=== PATIENT | female | born 1970 | race Caucasian/White ===

== ENCOUNTER 2020-02-02 11:59 | Outpatient (CLI) | payer OTHER, BC, SELFPAY ==
--- NOTE | ~2020-02-02 | XR_ITS ---
XR chest 2V DATE: 02/02/2020 12:18 INDICATION: Cough, shortness of breath. Positive Covid 19 test TECHNIQUE: PA and lateral views COMPARISON: 06/20/2016 PA and lateral chest FINDINGS: Normal heart size. No hilar or mediastinal enlargement. The lungs are clear of infiltrate o r consolidation. No pleural effusion or pulmonary vascular congestion or pneumothorax. IMPRESSION: Negative Reviewed, dictated and finalized at location B. IMPRESSION: Negative
== END 2020-02-02 12:00 | disposition home or self-care (01) ==
PROVIDERS: PCP Family Medicine; Visit Provider Family Medicine
DX: R06.00 Dyspnea, unspecified (principal)
CPT/HCPCS: 71046

== ENCOUNTER → 2021-05-09 14:22 | Outpatient (CLI) | payer BC, SELFPAY ==
--- NOTE | ~2021-05-09 | XR_ITS ---
EXAMINATION: XR wrist LT min 3V DATE: 05/09/2021 14:43 INDICATION: Left wrist pain. TECHNIQUE: 4 views of left wrist were obtained. COMPARISON: None. FINDINGS: Bone alignment is normal. No fracture. There is mild osteoarthritis of triscaphe joint and first carpometacarpal joint. IMPRESSION: 1. Mild polyarticular osteoarthritis. Reviewed, dictated and finalized at location A. [employer]
--- NOTE | ~2021-05-09 | XR_ITS ---
EXAMINATION: XR cervical spine 4-5V EXAM DATE: 05/09/2021 14:43 INDICATION: Cervicalgia. TECHNIQUE: Cervical spine frontal, lateral, lateral swimmers, and open-mouth odontoid projections. There is no prior study for comparison. FINDINGS: Straightening of normal cervical lordosis could be positional or spasm. There is no eviden ce of acute cervical fracture. The odontoid process is intact. Pre-dens space is normal. Preverteb ral soft tissue is normal. There are no soft tissue abnormalities identified. No more than mild cerv ical arthropathy. Lung apices clear. Vertebral body and disc heights are well-maintained. The vert ebral bodies are aligned. IMPRESSION: 1. Cervical straightening. 2. Mild cervical arthropathy. Reviewed, dictated and finalized at location A. B[employer]NER REPA[employer]
== END ==
PROVIDERS: PCP Family Medicine; Visit Provider Physician Assistant
DX: M54.2 Cervicalgia (principal); M19.032 Primary osteoarthritis, left wrist
CPT/HCPCS: 72050; 73110

== ENCOUNTER → 2021-05-30 10:57 | Outpatient (CLI) | payer BC, SELFPAY ==
--- NOTE | ~2021-05-30 | MM_ITS ---
EXAMINATION: MM screening [facility] BI w radhika HISTORY: Screening mammogram TECHNIQUE: Craniocaudal and mediolateral oblique 3-D tomosynthesis images were obtained and synthetic 2-D images were generated. CAD analysis was submitted and interpreted. COMPARISON: 04/16/2019, 07/12/2016, 06/29/2011 BREAST PARENCHYMAL COMPOSITION: There are scattered areas of fibroglandular density. FINDINGS: There is no evidence of suspicious mass, calcification, or architectural distortion to sugg est malignancy in either breast. There has been no suspicious interval change. IMPRESSION: 1. No mammographic evidence of malignancy. 2. Recommend routine screening mammography in one year. BI-RADS Category 1: Negative Reviewed, dictated and finalized at location A. ER MANUFA[employer]UR[employer]
== END ==
PROVIDERS: PCP Family Medicine; Visit Provider Physician Assistant
DX: Z12.31 Encounter for screening mammogram for malignant neoplasm of breast (principal)
CPT/HCPCS: 77063; 77067

== ENCOUNTER 2021-07-04 00:13 | Day surgery (SDC) | payer BC, SELFPAY ==
[2021-06-22 11:28] VITALS: BMI 29.2
[2021-07-04 09:57] VITALS: BP 131/83; PULSE 90; RESP 16; TEMP 36.9; O2SAT 100; BMI 29.0
[2021-07-04] MEDS: LACTATED RINGERS 1,000 ML 150 ML IV CONT (10:09)
--- NOTE | 2021-07-04 10:24 | WPDGICN ---
Assessment and Plan Assessment and plan (1) Encounter for screening colonoscopy: Code(s): Z12.11 - Encounter for screening for malignant neoplasm of colon Status: Acute Assessment and Plan: Patient presents for screening colonoscopy. Appears to be at average risk for colon polyps. GI Consult Note Consult date/time: 07/04/21 10:24 HPI: Rosalinda Hall is a 51 year old female Presents for screening colonoscopy. Patient's current weight appetite and bowel movements are normal. She denies abdominal pain. She has had no bleeding. Family history is noncontributory. Review of Systems Review of Systems: All systems reviewed & are unremarkable except as noted in HPI and below PMFSH Past Medical History Medical History (Updated 07/04/21 @ 10:25 by Pj Vallecillo MD) delivery delivered Metal bone fixation hardware in place Neuropathy Surgical History Surgical History (Reviewed 05/09/21 @ 13:59 by Francy Rogers [facility]) History of back surgery History of foot surgery History of tonsillectomy History of total knee arthroplasty History of tubal ligation [place] teeth extracted Family History Family History (Reviewed 05/09/21 @ 13:59 by Francy Rogers [facility]) Mother Diabetes mellitus Hypertension Father Hypertension Grandparent Family history of malignant neoplasm of breast in first degree relative Social History Social History (Reviewed 05/09/21 @ 13:59 by Francy Rogers [facility]) Smoking packs per day: 1 Smoking cigarettes per day: 20.0 Smoking status: Former smoker Tobacco type: cigarettes Second hand tobacco smoke exposure: No Smoking end date: 05/07/96 Alcohol intake: current Alcohol use details: Occasional Substance use: never Substance use type: does not use Living arrangements: alone Gender identity (if verbalized by the patient): Female Sexual Orientation (if Verbalized by the Patient): Straight or Heterosexual Spiritual care concerns: No Agree to blood products: Yes Meds Home Medications and Allergies Home Medications Medication Instructions Recorded Confirmed Type ergocalciferol (vitamin D2) 50 mcg 50 mcg PO DAILY 11/03/20 07/04/21 History (2,000 unit) capsule uplgmeqrrkfy-No-dnpt-minerals 1 tablet PO DAILY 11/03/20 07/04/21 History zolpidem 10 mg tablet 10 mg PO .q hs PRN #30 tablet 05/31/21 07/04/21 Rx tramadol 50 mg tablet 50 mg PO BID PRN #60 tablet 06/28/21 07/04/21 Rx Allergies Allergy/AdvReac Type Severity Reaction Status Date / Time morphine Allergy Mild Hives / Verified 07/04/21 09:56 Red Face codeine AdvReac Unknown Vomiting Verified 07/04/21 09:56 Vital Signs Vital Signs - 24 hr 07/04/21 09:57 Temperature 98.5 F Pulse Rate 90 Respiratory Rate 16 Blood Pressure 131/83 Pulse Oximetry 100 Exam Narrative: Physical exam reveals patient to be alert. Vital signs stable. HEENT exam is unremarkable. Patient is anicteric. Lungs are clear to auscultation and percussion. Heart is without murmur or extra sounds. Abdominal exam exam bowel sounds are present soft nontender with no hepatosplenomegaly. Digital external rectal exam is normal.
--- NOTE | 2021-07-04 10:51 | WPDANESEPPF ---
Anes - Initial Pre Proc Eval Procedure: Operation Date: 07/04/21 11:15 Proposed Procedures p Screening Colonoscopy - Pj Vallecillo MD Date/Time: 07/04/21 10:51 Surgeon: Pj Vallecillo MD Pre Op Diagnosis: neoplasm screening Patient Data Age: 51 Gender: F Height: 1.65 m Weight: 79.1 kg Last Vital Signs Temp 98.5 F 07/04/21 09:57 Pulse 90 07/04/21 09:57 Resp 16 07/04/21 09:57 BP 131/83 07/04/21 09:57 Pulse Ox 100 07/04/21 09:57 Allergies Allergy/AdvReac Type Severity Reaction Status Date / Time morphine Allergy Mild Hives / Verified 07/04/21 09:56 Red Face codeine AdvReac Unknown Vomiting Verified 07/04/21 09:56 Home Medications Medication Instructions Recorded Confirmed Type ergocalciferol (vitamin D2) 50 mcg 50 mcg PO DAILY 11/03/20 07/04/21 History (2,000 unit) capsule atsnympclbwo-Vh-jkcr-minerals 1 tablet PO DAILY 11/03/20 07/04/21 History zolpidem 10 mg tablet 10 mg PO .q hs PRN #30 tablet 05/31/21 07/04/21 Rx tramadol 50 mg tablet 50 mg PO BID PRN #60 tablet 06/28/21 07/04/21 Rx Patient hx anesthesia problems: none Family hx anesthesia problems: none Results Review: All pre-operative results and documents have been reviewed as part of the pre-operative evaluation. [facility] Past Medical History Medical History (Updated 07/04/21 @ 10:25 by Pj Vallecillo MD) delivery delivered Metal bone fixation hardware in place Neuropathy Surgical History Surgical History History of back surgery History of foot surgery History of tonsillectomy History of total knee arthroplasty History of tubal ligation [place] teeth extracted Family History Family History Mother Diabetes mellitus Hypertension Father Hypertension Grandparent Family history of malignant neoplasm of breast in first degree relative Social History Social History Smoking packs per day: 1 Smoking cigarettes per day: 20.0 Smoking status: Former smoker Tobacco type: cigarettes Second hand tobacco smoke exposure: No Smoking end date: 05/07/96 Alcohol intake: current Alcohol use details: Occasional Substance use: never Substance use type: does not use Living arrangements: alone Gender identity (if verbalized by the patient): Female Sexual Orientation (if Verbalized by the Patient): Straight or Heterosexual Spiritual care concerns: No Agree to blood products: Yes Anes - Eval Final PreProcedure Day of Procedure 07/04/21 10:51 Patient weight: overweight Heart: regular rate and rhythm Lungs: clear to auscultation Airway: Mallampati scale class II Neurological: alert and oriented Last oral intake: >/= 8 hours ASA classification: II Emergent: no Anesthetic plan: proceed Anesthesia type and monitoring: general GIVS and standard monitoring Results Review: All pre-operative results and documents have been reviewed as part of the pre-operative evaluation. Informed Consent: The patient's anesthetic plan and its attendant risks and benefits were discussed with the patient/family/POA. Questions were solicited and answers provided to the satisfaction of the patient/family/POA.
[2021-07-04 11:12] VITALS: BP 136/75; PULSE 88; RESP 26; O2SAT 97
[2021-07-04 11:22] VITALS: BP 142/78; PULSE 80; RESP 25; O2SAT 100
[2021-07-04 11:32] VITALS: BP 143/84; PULSE 65; RESP 18; O2SAT 100
== END 2021-07-04 11:40 | disposition home or self-care (01) ==
PROVIDERS: PCP Family Medicine; Visit Provider Internal Medicine Gastroenterology
PROC: 0DJD8ZZ Inspection of Lower Intestinal Tract, Via Natural or Artificial Opening Endoscopic (ICD-10-PCS; CPT 45378; principal; 2021-07-04 11:15)
DX: Z12.11 Encounter for screening for malignant neoplasm of colon (principal); K64.8 Other hemorrhoids; G62.9 Polyneuropathy, unspecified; Z87.891 Personal history of nicotine dependence
CPT/HCPCS: 45378; J2704; J7120

== ENCOUNTER → 2021-08-29 12:50 | Outpatient (CLI) | payer BC, SELFPAY ==
--- NOTE | ~2021-08-29 | XR_ITS ---
XR ankle LT min 3V DATE: 08/29/2021 13:02 INDICATION: Left ankle injury TECHNIQUE: 4 views COMPARISON: None FINDINGS: No fracture or dislocation of the ankle or disruption of the ankle mortise. No periosteal r eaction or bone destruction. Prominent plantar and mild posterior calcaneal enthesopathy. Fixation device of first metatarsal bone. IMPRESSION: No fracture or dislocation of ankle Calcaneal enthesopathy Reviewed, dictated and finalized at location A.
== END ==
PROVIDERS: PCP Family Medicine; Visit Provider Physician Assistant
DX: S99.922A Unspecified injury of left foot, initial encounter (principal); X58.XXXA Exposure to other specified factors, initial encounter; M77.32 Calcaneal spur, left foot
CPT/HCPCS: 73610

== ENCOUNTER → 2021-09-19 14:57 | Outpatient (CLI) | payer BC, SELFPAY ==
--- NOTE | ~2021-09-19 | XR_ITS ---
EXAM: XR thoracic spine 3V HISTORY: M54.9 - Dorsalgia, unspecified . COMPARISON: None available. FINDINGS: Pedicles intact. Normal vertebral body alignment. Vertebral body heights preserved. Multilevel mild m arginal osteophytosis. Visualized lung parenchyma is clear. IMPRESSION: Mild multilevel degenerative disc disease in the thoracic spine. Reviewed, dictated and finalized at location K.
--- NOTE | ~2021-09-19 | XR_ITS ---
EXAM: XR cervical spine 4-5V HISTORY: M54.9 - Dorsalgia, unspecified . COMPARISON: None available. FINDINGS: Craniocervical association and atlantoaxial joint are normal. No prevertebral soft tissue swelling. The vertebral body heights are maintained. Mild disc space narrowing at C5-6. 2 mm retrolis thesis of C5 on C6, otherwise normal vertebral body alignment. Normal facets and posterior elements. No significant neural foraminal narrowing. IMPRESSION: Mild degenerative disc disease at C5-6. Minimal retrolisthesis of C5 on C6. Otherwise nor mal cervical spinal radiograph findings. Reviewed, dictated and finalized at location K. IMPRESSION: Mild degenerative disc disease at C5-6. Minimal retrolisthesis of C 5 on C6. Otherwise normal cervical spinal radiograph findings.
== END ==
PROVIDERS: PCP Family Medicine; Visit Provider Physician Assistant
DX: M47.813 Spondylosis without myelopathy or radiculopathy, cervicothoracic region (principal)
CPT/HCPCS: 72050; 72072

== ENCOUNTER 2022-05-24 14:11 | Outpatient (CLI) | payer BC, SELFPAY ==
--- NOTE | ~2022-05-24 | XR_ITS ---
EXAMINATION: XR shoulder LT min 2V DATE: 05/24/2022 14:37 INDICATION: Left shoulder pain TECHNIQUE: AP internally and externally rotated, AP oblique externally rotated and axillary views of the left shoulder were obtained. COMPARISON: None FINDINGS: Normal alignment. No fracture. Glenohumeral joint is normal. Acromioclavicular joint is normal. Soft tissues are unremarkable. Visualized portions of the lungs are clear. IMPRESSION: Negative left shoulder radiographs. Reviewed, dictated and finalized at location A. TUTOR
== END 2022-05-24 14:12 ==
PROVIDERS: PCP Physician Assistant; Visit Provider Physician Assistant
DX: M25.512 Pain in left shoulder (principal)
CPT/HCPCS: 73030

== ENCOUNTER → 2022-06-30 14:08 | Outpatient (CLI) | payer BC, SELFPAY ==
--- NOTE | ~2022-06-30 | MR_ITS ---
EXAMINATION: MR shoulder LT wo con DATE: 06/30/2022 14:52 INDICATION: Left shoulder pain TECHNIQUE: Magnetic resonance imaging (MRI) of the left shoulder was performed without intravenous co ntrast. Sequences included axial PD-weighted FS FSE, coronal oblique PD-weighted FS FSE, coronal obli que T2-weighted FS FSE, sagittal PD-weighted FS FSE, and sagittal T1-weighted SE. COMPARISON: Left shoulder radiographs dated 05/24/2022 FINDINGS: Coracoacromial arch: The acromion undersurface is curved in morphology (type II). The coracoacromial ligament is normal. M ild acromioclavicular osteoarthritis. Rotator cuff: Moderate supraspinatus tendinopathy and moderate anterior and mild posterior infraspinatus tendinopat hy without discrete tear. The teres minor tendon is normal. The subscapularis tendinopathy with giddi ness masses or fluid. No more small split tear between the bursal side of the tendon which is contigu ous with the transverse humeral ligament and the portion of the tendon attached to the lesser tuberos ity. This allows medial subluxation of the long head biceps tendon across the cephalad medial rim of the intertubercular groove and into the subscapularis split tear. Normal rotator cuff muscle bulk and signal. Biceps tendon, glenoid labrum and glenohumeral cartilage: Moderate tendinopathy without discrete tear centered at the junction of the intra-articular and extra -articular portions of the long head biceps tendon. There is a tear of the 11:00-9:30 position of the posterior superior glenoid labrum. Glenohumeral cartilage is normal. Fluid: Physiologic amount of fluid in the glenohumeral joint. There is disproportionate increased fluid in t he long head biceps tendon sheath consistent with mild bicipital tenosynovitis.. No loose osteochond ral bodies. Minimal increased fluid signal in the subacromial/subdeltoid bursa consistent with mild b ursitis. Bones: Normal marrow signal with no edema, fracture or abnormal marrow replacing process. IMPRESSION: 1. Moderate supraspinatus and infraspinatus tendinopathy without tear. 2. Mild subscapularis tendinopathy with small split tear between the portion of the tendon attached t o the lesser tuberosity and the superficial portion of the tendon attached to the transverse humeral ligament. This lowers medial subluxation of the long head biceps tendon across the medial rim of the intertubercular groove and into the split tear defect. 3. Mild bicipital tenosynovitis with moderate tendinopathy without tear of the subluxed portion of th e long head biceps tendon. 4. Tear of the posterior superior glenoid labrum. 5. Mild acromioclavicular osteoarthritis with mild underlying subacromial/subdeltoid bursitis. Reviewed, dictated and finalized at location A. 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 Moderate supraspinatus and infraspinatus tendinopathy without tear. 2. Mild subscapularis tendinopathy with small split tear between the portion of the tendon attached to the lesser tuberosity and the superficial portion of th e tendon attached to the transverse humeral ligament. This lowers medial sublux ation of the long head biceps tendon across the medial rim of the intertubercul ar groove and into the split tear defect. 3. Mild bicipital tenosynovitis with moderate tendinopathy without tear of the subluxed portion of the long head biceps tendon. 4. Tear of the posterior superior glenoid labrum. 5. Mild acromioclavicular osteoarthritis with mild underlying subacromial/subde ltoid bursitis.
== END ==
PROVIDERS: PCP Physician Assistant; Visit Provider Orthopaedic Surgery
DX: M19.012 Primary osteoarthritis, left shoulder (principal); M75.22 Bicipital tendinitis, left shoulder
CPT/HCPCS: 73221

== ENCOUNTER 2022-08-14 09:21 | Outpatient (CLI) | payer BC, SELFPAY ==
--- NOTE | ~2022-08-14 | MMUS_ITS ---
EXAMINATION: MM diagnostic [facility] BI w radhika, US breast LT limited HISTORY: Patient complains of some thickening and tenderness at L3-4 o'clock, left breast TECHNIQUE: Bilateral full field and spot left 3-D tomosynthesis images were performed and synthetic 2 -D images were generated. CAD analysis was submitted and interpreted. High resolution upper outer carson drant and lower outer quadrant left breast ultrasound was performed. COMPARISON: 05/30/2021, 04/16/2019 bilateral screening mammogram examinations BREAST PARENCHYMAL COMPOSITION: There are scattered areas of fibroglandular density. FINDINGS: MAMMOGRAPHIC FINDINGS: Benign low-density circumscribed contiguous 2 x 2.8 mm and 3 x 6.7 mm opacities are noted in the mid to upper outer left breast superficially, possibly benign lymph nodes. These are present on 9 mammogram is well. No suspicious mass or architectural distortion, malignant calcification, skin thickening or retractio n or significant new or developing density of either breast is detected. ULTRASOUND: 3:00 5 cm from nipple: Circumscribed 2.8 x 3.6 x 3 mm hypoechoic lesion without internal vascularity or posterior shadowing, likely benign. No suspicious mass or shadowing is detected in the upper outer or lower outer quadrants of the left b reast. IMPRESSION: 1. Benign findings 2. Routine annual mammographic screening is recommended BI-RADS Category 2: Benign finding(s). Reviewed, dictated and finalized at location A. IMPRESSION: 1. Benign findings 2. Routine annual mammographic screening is recommended BI-RADS Category 2: Benign finding(s).
== END 2022-08-14 09:22 ==
PROVIDERS: PCP Family Medicine; Visit Provider Family Medicine
DX: N63.23 Unspecified lump in the left breast, lower outer quadrant (principal)
CPT/HCPCS: 76642; 77062; 77066; G0279

== ENCOUNTER 2022-09-19 01:09 | Day surgery (SDC) | payer BC, SELFPAY ==
[2022-09-12 12:25] VITALS: BMI 29.9
--- NOTE | 2022-09-12 12:31 | PC.NURSE ---
Report to the Outpatient Waiting Room, entrance under the green pavilion located off [facility], at time 0830 on date 09/19/22. Planned Procedure Time: 1030. Time changes happen often and if your time is changed the preop area will call you the afternoon before. - You and your visitor will be asked to self-screen and do not enter if you have any COVID symptoms. - A mask is optional within the hospital at this time. Patients may have clear liquids (water, carbonated beverages, clear teas, apple juice) until 3 hours prior to surgery with a maximum of 20 ounces. - No food from midnight until time of surgery Take the following medications with a SIP of water the morning of surgery: TRAMADOL IF NEEDED DO NOT STOP ANY OF YOUR OTHER PRESCRIPTION MEDICATIONS PRIOR TO SURGERY?EXCEPT THE FOLLOWING Medications to discontinue per physician: VITAMINS/SUPPLEMENTS Date to take last dose: 09/15/22 Please no make-up, nail macedonian, hairspray, perfume, deodorant, or body powder the day of surgery. No jewelry (including any body piercings) or valuables the day of surgery, leave them at home. Please take a shower or bath the night before, or the morning of, surgery with an antibacterial soap. Wear comfortable, loose fitting clothing. - Jewelry must be removed prior to entering the operating room. Rings and piercings that are not removed may be cut off. - The hospital will not accept responsibility for valuables. - Please leave all valuables, including medications, at home the day of surgery. If you are going home after surgery, a licensed cdl bulk driver must drive you home. - NO public transportation without another adult if you receive anesthesia. - We recommend that an adult stay with you for 24 hours following discharge. - We also recommend that you do not drive, make important decision, drink alcoholic beverages, or take any drugs that were not prescribed by your health care provider for at least 24 hours after your discharge time. Follow any additional instructions given to you from your surgeon. If you or anyone in your household have experienced Covid symptoms in the past week, please notify your surgeon or the nurse liaison at the phone number below for possible testing. Telephone instructions given to PT - RENITA CANCHOLA and asked if any additional questions and then verbalized understanding. Patient advised to call surgeon office or pre surgery nurse liaison [phone] if any additional questions.
--- NOTE | 2022-09-18 10:35 | WPDANESEPPF ---
Anes - Initial Pre Proc Eval Procedure: Operation Date: 09/19/22 10:30 Proposed Procedures p Left Shoulder Arthroscopic Rotator Cuff Repair, Biceps Tenodesis, Subacromial Decompression - Wally Alvarez MD Date/Time: 09/18/22 10:35 Surgeon: Wally Alvarez MD Pre Op Diagnosis: left rotator cuff tear, biceps tenodesis Patient Data Age: 52 Gender: F Height: 1.65 m Weight: 81.65 kg Allergies Allergy/AdvReac Type Severity Reaction Status Date / Time morphine Allergy Mild Hives / Verified 09/19/22 08:38 Red Face codeine AdvReac Unknown Vomiting Verified 09/19/22 08:38 Home Medications Medication Instructions Recorded Confirmed Type ergocalciferol (vitamin D2) 50 mcg 50 mcg PO DAILY 11/03/20 09/19/22 History (2,000 unit) capsule evwksvgedrqf-Rh-vchp-minerals 1 tablet PO DAILY 11/03/20 09/19/22 History (Multiple Vitamin, Womens tablet) tramadol 50 mg tablet 50 mg PO BID PRN pain #60 tabs 09/04/22 09/19/22 Rx zolpidem 10 mg tablet 10 mg PO .q hs PRN insomnia #30 09/04/22 09/19/22 Rx tabs Patient hx anesthesia problems: post op nausea/vomiting Family hx anesthesia problems: none Results Review: All pre-operative results and documents have been reviewed as part of the pre-operative evaluation. [facility], [facility] Past Medical History Medical History delivery delivered Metal bone fixation hardware in place Neuropathy Surgical History Surgical History History of back surgery History of foot surgery History of tonsillectomy History of total knee arthroplasty History of tubal ligation [place] teeth extracted Family History Family History Mother Diabetes mellitus Hypertension Father Hypertension Grandparent Family history of malignant neoplasm of breast in first degree relative Social History Social History Smoking packs per day: 1 Smoking cigarettes per day: 20.0 Years smoked: 10 Smoking pack-years: 10.00 Smoking status: Former smoker Tobacco type: cigarettes Second hand tobacco smoke exposure: No Smoking end date: 05/07/98 Alcohol intake: current Alcohol use details: 1/MONTH Substance use: current Substance use type: marijuana Other substance usage details: CORNELIA Lack of Transportation: No Lack of Food: Never True Current Housing: I Have Housing Concerned About Future Housing: No Difficulty Paying Gas/Electric Bills: No Difficulty Paying for Meds: No Currently Unemployed: No Education: High School Diploma/GED Difficulty w/ Childcare or Family Care: No Living arrangements: with family Occupation/Education: occupation Gender identity (if verbalized by the patient): Female Sexual Orientation (if Verbalized by the Patient): Straight or Heterosexual Spiritual care concerns: No Agree to blood products: Yes Anes - Eval Final PreProcedure Day of Procedure 09/18/22 10:35 Patient weight: obese Heart: regular rate and rhythm Lungs: clear to auscultation Airway: Mallampati scale class II Neurological: alert and oriented Last oral intake: >/= 8 hours ASA classification: II Emergent: no Anesthetic plan: proceed Anesthesia type and monitoring: general GIVS and standard monitoring Results Review: All pre-operative results and documents have been reviewed as part of the pre-operative evaluation. Informed Consent: The patient's anesthetic plan and its attendant risks and benefits were discussed with the patient/family/POA. Questions were solicited and answers provided to the satisfaction of the patient/family/POA.
[2022-09-19] VITALS (10 sets, daily range): BP systolic 94–131; BP diastolic 51–67; PULSE 52–73; RESP 12–20; TEMP 36.2–36.3; O2SAT 94–100
--- NOTE | 2022-09-19 07:20 | WPDHPUPDATE1 ---
History and Physical Update Update Date/Time: 09/19/22 07:20 History and Physical has been reviewed, including an updated exam of the patient. There are NO changes in the patient's condition. Risks, benefits, and alternatives have been discussed and questions answered. Patient agrees to proceed with procedure.
[2022-09-19] MEDS: ACETAMINOPHEN 500 MG TABLET 1000 MG PO (08:42)
[2022-09-19] MEDS: LACTATED RINGERS 1,000 ML 30 ML IV CONT (09:05)
[2022-09-19] MEDS: KETOROLAC 15 MG/ML VIAL (*BKC) IV PUSH (09:07)
--- NOTE | 2022-09-19 09:26 | WPDANESPNB ---
Anes - Peripheral Nerve Block Date/Time: 09/19/22 09:26 I have discussed with the patient/family/POA the placement of a peripheral nerve block for post-operative pain management, including associated risks, benefits, complications, and side effects. Alternative methods of post-operative analgesia were detailed. Questions were solicited and answers provided to the satisfaction of the patient/family/POA. Time-Out: A pre-procedural Time-Out was completed immediately before starting the procedure and confirmed: Patient Identification, Site, Procedure, Patient Position and the Availability of Requisite Equipment. Clinical Indications: Acute post-operative pain management requested by the operative surgeon. Nerve Block Insertion Note Anes-nerve block: interscalene left Patient position: supine Skin prep: chlorhexidine Needle: 22 gauge, stimulating, insulated echogenic needle. Needle length: 50 mm Technique: ultrasound Injectate: bupivacaine 0.5% with epi 5 mcg/ml (30cc- no epi) Observations: tolerated well Complications: none Procedure start time:: 957 Procedure end time:: 1001
[2022-09-19] MEDS: SCOPOLAMINE 1.5 MG PATCH TRANSDERM (09:32)
[2022-09-19] MEDS: ceFAZolin 2 GM/D5W 50 ML 2 GM/50 ML BAG IVPB (10:12)
[2022-09-19] MEDS: EPINEPHrine HCL INJ 1 MG/ML AMPUL 3 MG IRRIGATION (11:05)
--- NOTE | 2022-09-19 12:23 | P.OP_ITS ---
Procedure Note - Detailed Date of Procedure 09/19/22 Pre-op Diagnosis Left rotator cuff tear, biceps tendinopathy, subacromial impingement. Post-op Diagnosis Same Procedure Performed Left shoulder 1. Arthroscopic rotator cuff repair 2. Arthroscopic subacromial decompression 3. Arthroscopic biceps tenodesis Surgeon Wally Alvarez MD Financial Foundations Associate Inez Navarro PA-C Anesthesia General and Regional ( interscalene block) Findings Mid grade partial-thickness tear of the subscapularis without significant retraction. The biceps in that area was fraying. The anterior supraspinatus showed high-grade partial-thickness tearing greater than 75% thickness. The biceps tenodesis and subscapularis repair were incorporated into a SwiveLock anchor at the articular margin. The supraspinatus tear was carefully assessed and it was felt that completion of the tear would provide the best healing. A small tear was created and repaired with a double row construct and 3 suture passes. Modest subacromial impression was performed. Description of Procedure Preoperative antibiotics were given. An interscalene block was administered in the preoperative area. The patient was bought brought to the operating room. A general anesthetic was administered. The patient was carefully positioned in the beach chair position. The head and neck were carefully positioned. The non operative extremity was also carefully positioned. The shoulder was prepped and draped in the usual sterile fashion. Examination was performed. Standard posterior and anterior arthroscopic portals were established. Inflow achieved with the arthroscopic pump using saline and epinephrine. The glenohumeral joint was carefully inspected. The articular cartilage was normal as was the labrum. The joint was very lax. Very anterior high-grade articular supraspinatus tear was a her. The biceps was fraying on the bursal side. Subscapularis was split and starting to detach from the footprint with a low to mid grade partial tear. Biceps was tagged with a loop and tack system. It was released from the labrum. The subscapularis was stitched with the horizontal mattress suture. The sutures were incorporated into a SwiveLock anchor at the superior lesser tuberosity. An accessory suture pass was created with the extra suture from the anchor into the biceps. Attention was turned to the subacromial space. A complete bursectomy was performed. The rotator cuff was tested after being marked while observing it from articular side. It was very soft and bubbling at the area of the partial articular tear. It was elected to complete the tear with minimal debridement of the superficial bursal aspect. A subcentimeter tear was created. An all suture anchor was placed at the medial aspect of the footprint. Three sutures were passed and brought laterally to a SwiveLock. A very nice anatomic reduction and compression was accomplished. A modest acromioplasty was performed. The arthroscopic instruments were removed. The wounds were closed with 3-0 Monocryl subcuticular suture and steri strips. There were no complications. A sling was applied and the patient brought to the recovery room. Physician clinical physician assistant, Inez Navarro PA-C, required for surgery; including patient positioning, draping, arthroscopic camera operation, maintaining instrument position, suture retrieval, wound closure, and dressing and sling placement. Implants Arthrex SwiveLock anchor x2. Arthrex FiberTak anchor x1. Estimated Blood Loss 20 Pathology None sent Complications No immediate complications Condition Stable Disposition PACU [facility] Billing Surgery - Charge Forward: Surgery Billing
== END 2022-09-19 15:55 | disposition home or self-care (01) ==
PROVIDERS: PCP Family Medicine; Visit Provider Orthopaedic Surgery
PROC: (CPT 29805; principal; 2022-09-19 10:30)
DX: M75.102 Unspecified rotator cuff tear or rupture of left shoulder, not specified as traumatic (principal); M75.22 Bicipital tendinitis, left shoulder; M75.42 Impingement syndrome of left shoulder; G89.18 Other acute postprocedural pain; Z87.891 Personal history of nicotine dependence; F12.90 Cannabis use, unspecified, uncomplicated; E66.9 Obesity, unspecified; Z68.30 Body mass index [BMI] 30.0-30.9, adult
CPT/HCPCS: 29827; 29828; 29826; 64415; A4565; A9270; C1713; J0171; J0690; J1100; J1885; J2250; J2405; J2704; J3010; J7120

== ENCOUNTER 2024-11-27 13:38 | Outpatient (CLI) | payer BC, SELFPAY ==
--- NOTE | ~2024-11-27 | MM_ITS ---
EXAMINATION: MM screening clare BI w radhika HISTORY: Screening TECHNIQUE: Craniocaudal and mediolateral oblique 3-D tomosynthesis images were obtained and synthetic 2-D images were generated. CAD analysis was submitted and interpreted. COMPARISON: Comparison to multiple prior studies sequentially, with oldest reviewed study dated 06/29. BREAST PARENCHYMAL COMPOSITION: There are scattered areas of fibroglandular density. FINDINGS: There is no evidence of suspicious mass, calcification, or architectural distortion to sug gest malignancy in either breast. IMPRESSION: 1. No mammographic evidence of malignancy. 2. Recommend routine screening mammography in one year. BI-RADS Category 1: Negative Reviewed, dictated and finalized at location B.
--- OUTSIDE RECORDS SUMMARY | 2024-11-27 13:48 | XMS_ITS | Encounter Summary ---
Author Organization [facility] [place] Address [address] [place] [id number] Care Team Providers Care Tip Scourer Name Role Phone Unavailable Primary Care Provider Unavailabl e Encounter Details Date Type Department Care Team (Late st Contact Info) Description 04/23/2008 Abstract [facility] Conversion Md, Generic Conversion, Social History Tobacco Use Types Packs/Day Years Used Date Smoking Tobacco: Never Assessed Comments Unknown Sex and Gender Information Value Date Recorded Sex Assigned at Not on file Legal Sex Female 11:15 PM CDT Gender Identity Not on file Sexual Orientation Not on file documented as of this encounter Plan of Treatment Not on file documented as of this encounter Visit Diagnoses Not on filedocumented in this encounter
--- OUTSIDE RECORDS SUMMARY | 2024-11-27 13:48 | XMS_ITS | Clinical Summary ---
Author Organization [facility] Address [address] [place] [id number] Care Team Providers Care Hr Payroll Coordinator Name Role Phone Unavailable Primary Care Provider Unavailabl e Social History Tobacco Use Types Packs/Day Years Used Date Smoking Tobacco: Never Assessed Comments Unknown Sex and Gender Information Value Date Recorded Sex Assigned at Not on file Legal Sex Female 11:15 PM CDT Gender Identity Not on file Sexual Orientation Not on file Last Filed Vital Signs Vital Sign Reading Time Taken Comments Blood Pressure 106/60 05/04/2008 2:35 PM RADIO OPERATOR GROUND Pulse 76 05/04/2008 2:35 PM RADIO OPERATOR GROUND Temperature - - Respiratory Rate - - Oxygen Saturation - - Inhaled Oxygen Concentration - - Weight 83.9 kg (185 lb) 05/04/2008 2:35 PM RADIO OPERATOR GROUND Height 165.1 cm (5' 5) 05/04/2008 2:35 PM RADIO OPERATOR GROUND Body Mass Index 30.79 05/04/2008 2:35 PM RADIO OPERATOR GROUND Plan of Treatment Health Maintenance Due Date Last Done Comments Cervical Cancer Screening Pa p Smear (Age 30 to 64) Every 3 Years 1971 Colorectal Cancer Screening Colonoscopy (10 Years) 1971 Annual Physical 1974 Hepatitis C 1989 DTaP, Tdap and Td Vaccines ( 1 - Tdap) 1990 Hepatitis B Vaccines (1 of 3 - 19+ 3-dose series) 1990 Cervical Cancer Screening Pa p with HPV Testing (Age 30 to 64) Every 5 Years 2001 Cervical Cancer Screening with HPV 2001 Mammogram Screening 2011 Pneumococcal Vaccine: 50+ Ye ars (1 of 1 - PCV) 2021 Zoster Vaccines (1 of 2) 2021 COVID-19 Vaccine ( - 2023-2 5 season) 2024 Meningococcal B Vaccine Aged Out No l onger eligible based on patient's age to complete this topic Meningococcal Vaccine Aged Out No anastasiya jossue eligible based on patient's age to complete this topic RSV Immunizations Under 20 Months Aged Out No longer eligible based on patient's age to complete this topic
--- OUTSIDE RECORDS SUMMARY | 2024-11-27 13:48 | XMS_ITS | Clinical Summary ---
Author Organization [facility] Address [address] [place] [address] Phone Care Team Providers Care Accounting Assistant Name Role Phone Manju Porras MD Primary Care Provi padmini Allergies No known active allergies Medications traMADoL (ULTRAM) 50 mg tablet Take 100 mg by mouth 2 times daily. Active zolpidem (AMBIEN) 10 mg tablet Take 10 mg by mouth daily at bedtime. Active HYDROcodone-david taminophen (NORCO) 5-325 mg tabletIndicatio ns:Pre-op testing,Hallux rigidus of left foot Take 1 Tablet by mouth every 4 hours as needed for moderate pain. Max Daily Amount: 6 Tablets 28 Tablet 09/23/2019 Active Social History Tobacco Use Types Packs/Day Years Used Date Smoking Tobacco: Former Smokeless Tobacco: Never Alcohol Use Standard Drinks/Week Comments Yes 0 (1 standard drink = 0.6 oz pur e alcohol) ocassionally Comments No Sex and Gender Information Value Date Recorded Sex Assigned at Not on file Legal Sex Female 12:18 PM GENERAL TELLER Gender Identity Not on file Sexual Orientation Not on file Last Filed Vital Signs Vital Sign Reading Time Taken Comments Blood Pressure 98/57 09/23/2019 10:00 AM CDT Pulse 64 09/23/2019 9:28 AM CDT Temperature 36.6 C (97.9 F) 09/23/2019 9:28 AM CDT Respiratory Rate 18 09/23/2019 9:28 AM CDT Oxygen Saturation 98% 09/23/2019 9:28 AM CDT Inhaled Oxygen Concentration - - Weight 84.8 kg (187 lb) 09/23/2019 7:09 AM CDT Height 165.1 cm (5' 5) 09/15/2019 1:02 PM CDT Body Mass Index 31.12 09/15/2019 1:02 PM CDT Plan of Treatment Health Maintenance Due Date Last Done Comments DTAP/TDAP/TD VACCINES (1 - Tdap) 1990 HEPATITIS B VACCINES (1 of 3 - 19+ 3-dose series) 01/06 HPV/Cotest (21-29) 01/28/1992 CERVICAL CANCER SCREENING 2001 HPV/Cotest (30-65) 2001 PAP SMEAR 2001 BREAST CANCER SCREENING 2011 COLORECTAL SCREENING 01/28/2016 Colorectal Cancer Screening 01/28/2016 FIT-DNA Q 3 years 01/28/2016 FIT/FOBT Q 1 year 01/28/2016 Flex Sig/CT Colonography Q 5 years 01/28/2016 ZOSTER VACCINE (1 of 2) 2021 INFLUENZA VACCINE (#1) 2024 Medical Devices Implanted Type Area Salvage Engineering Technician Device Identifier Shelf Expiration Date Model / Serial / Lot Ball Jurgan 1.6mm [facility] [id number] - [id number] Implanted:Qty: 1 on 09/23/2019 by Paco Malloy DPM at [facility] Left: Foot JURGAN [id number] / / Screw Headless Compression 3.0x28mm Implanted:Qty: 1 on 09/23/2019 by Paco Malloy DPM at [facility] Left: Foot [id number] [facility] 03/06/2022 S30 [id number] / / [id number] Description:ENTERED BY CRISTY [id number] 1X ADD Insurance [facility] BLUE ACCESS/TRUE BLUE PPO RX [employer] RX [employer] PLANS (INTERNAL) [facility] Internal Plans Advance Directives For more information, please contact: [phone] * Full Code (Latest Code Status on File) Date Activated Date Inactivated Comments 09/23/2019 6:59 AM 09/23/2019 12:29 PM Care Teams Accounting Assistant Relationship Specialty Start Date End Date Manju Porras MD [address] [place] [phone] PCP - General Family Practice 09/12/19
== END 2024-11-27 13:39 | disposition home or self-care (01) ==
LOC: ANHIMG 13:39
PROVIDERS: PCP Family Medicine; Visit Provider Student in an Organized Health Care Education/Training Program
DX: Z12.31 Encounter for screening mammogram for malignant neoplasm of breast (principal)
CPT/HCPCS: 77063; 77067